=== PATIENT | male | born 1965 | race Caucasian/White ===

== ENCOUNTER → 2016-12-03 | Outpatient (CLI) | payer BC ==
--- NOTE | 2016-12-03 13:26 | REP ---
PA and lateral chest: There are no comparisons. The lung humphries are clear. The cardiac size is normal The erlinda, mediastinum, and bony thorax are unremarkable. Impression: Negative PA and lateral chest. Signed by Jamrai Magaña MD 12/03/2016 01:17 P
--- NOTE | 2016-12-03 17:36 | ECGEPIP ---
Stationary ECG Study [facility] Test Date: 2016-12-03 Pat Name: SANKET KERR Department: Room: - Gender: M Manager Book: MILES : [id number] Requested By: Mahesh Weston Order Number: [id number] Reading MD: Wilbert Galicia Measurements Intervals Bagley Rate: 58 P: WI: 0 QRS: 73 QRSD: 124 T: 51 QT: 427 QTc: 423 Interpretive Statements Sinus bradycardia LA conduction disturbance First-degree AV block. Benign intraventricular conduction disturbance. Small inferior Q waves; rule out prior injury. No prior tracing for comparison. Clinical correlation advised. Electronically Signed On 12-03-2016 17:35:32 EDT by Wilbert Galicia
== END ==
LOC: M EKG 12:14
PROVIDERS: ATTEND Surgery
DX: R06.00 Dyspnea, unspecified (principal)